=== PATIENT | female | born 1965 ===

== ENCOUNTER 2023-09-21 05:45 | Emergency (ER) | payer OTHER, BC, SELFPAY ==
--- NOTE | ~2023-09-21 | CT_ITS ---
Examination: CT brain and CT cervical spine without contrast. Clinical indications: Seevers headache, neck pain. COMPARISON: None. TECHNIQUE: 5 mm thin axial and reformatted 2 mm thin sagittal and coronal images of brain were obtained. Subsequently axial 3 mm thin and reformatted 2 mm thin sagittal and coronal images of cervical spine were obtained. Subsequently axial 3 mm thin and reformatted 2 mm thin sagittal coronal images of cervical spine were obtained. DLP [id number]. This CT examination was performed using dose optimization technique as appropriate, variously including the following: Automated exposure control Adjustment of MA and/or KV according to patient size(this includes techniques or standardized protocols for targeted exams where dose is matched to indication/reason for exam; extremities or head. Use of iterative reconstruction techniques. FINDINGS: Brain: There is no acute intra-axial, extra-axial bleed bleed, masses or midline shift. There is no acute infarction evolution. There is no edema. The right ventriculoperitoneal shunt catheter with its tip close to third ventricle. The lateral ventricles are nonenlarged but asymmetrical. Bone windows reveal no calvarial abnormality. No scalp soft tissue abnormality. Bilateral paranasal sinuses and mastoid air cells are well-aerated and clear. Cervical spine: On sagittal reconstructed images is mild straightening of cervical lordosis. There is loss of C4-C5, C5-C6, C6-C7 and C7-T1 disc heights with mild ventral and posterior spondylosis. The craniovertebral junction appears normal. The C1-C2 enthesophytes no visible fracture, dislocation or subluxation seen. The prevertebral and the paravertebral soft tissues are normal. The thyroid lobes are symmetrical and normal. The lung apices are clear. CT/CT cervical spine wo IV con IMPRESSION: 1. No acute intracranial process seen. 2. There is a right ventriculoperitoneal shunt catheter with its tip close to third ventricle. The lateral ventricles are not enlarged but asymmetrical. 3. There is no visible acute fracture, dislocation or subluxation seen in cervical spine. There are degenerative disc changes with spondylosis C4-C5 through C7-T1 disc levels.
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
[2023-09-21 06:34] VITALS: BP 125/76; PULSE 62; RESP 16; TEMP 36.7; O2SAT 100; BMI 28.8
[2023-09-21 07:57] VITALS: BP 104/53; PULSE 56; RESP 16; TEMP 36.8; O2SAT 98
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
--- NOTE | 2023-09-21 08:20 | PC.NURSE ---
pt to xray at this time.
== END 2023-09-21 09:20 | disposition home or self-care (01) ==
PROVIDERS: Emergency Provider Emergency Medicine Emergency Medical Services
DX: S13.4XXA Sprain of ligaments of cervical spine, initial encounter (principal); S39.012A Strain of muscle, fascia and tendon of lower back, initial encounter; R51.9 Headache, unspecified; M54.2 Cervicalgia; V43.52XA Car driver injured in collision with other type car in traffic accident, initial encounter; Y93.9 Activity, unspecified; Y92.410 Unspecified street and highway as the place of occurrence of the external cause; Y99.8 Other external cause status
CPT/HCPCS: 70450; 72100; 72125; 99284